=== PATIENT | female | born 1980 | race Caucasian/White ===

== ENCOUNTER 2017-01-17 23:00 | Inpatient (IN) | payer MEDICAID ==
[~2017-01-17] VITALS: Ht 157.5 cm; Wt 74.7 kg
[2017-01-17 23:56] VITALS: Ht 157.5 cm; Wt 74.7 kg
[2017-01-17 23:57] VITALS: BP 124/83; PULSE 89; RESP 18
[2017-01-18] MEDS ORDERED: LACTATED RINGER'S 1,000 ML IV SCH (00:14)
[2017-01-18] MEDS ORDERED: MISOPROSTOL 200 MCG TAB PR PRN ×2 (00:30→06:00)
[2017-01-18] MEDS ORDERED: BUTORPHANOL 2 MG INJ IV PRN ×2 (00:30)
[2017-01-18] MEDS ORDERED: OXYCODONE/ACETAMINOPHEN (5/325) TAB PO PRN (00:30)
[2017-01-18] MEDS ORDERED: OXYTOCIN 30 UNITS/LR 500 ML IV PRN ×2 (00:30→06:00)
[2017-01-18] MEDS ORDERED: IBUPROFEN 600 MG TAB PO PRN (00:30)
[2017-01-18] MEDS ORDERED: AMPICILLIN 2 GM/NS (PMX) 100 ML IV ONE (00:30)
[2017-01-18] MEDS ORDERED: METHYLERGONOVINE 0.2 MG INJ IM PRN ×2 (00:30→06:00)
[2017-01-18] MEDS ORDERED: OXYTOCIN 30 UNITS/LR 500 ML IV SCH ×2 (00:30→02:30)
[2017-01-18] MEDS ORDERED: LIDOCAINE 1% (MPF) 30 ML INJ INJ PRN (00:30)
[2017-01-18] MEDS ORDERED: CARBOPROST 250 MCG INJ IM PRN ×2 (00:30→06:00)
[2017-01-18] MEDS ORDERED: LACTATED RINGER'S 1,000 ML IV PRN (01:00)
[2017-01-18 01:33] LABS: BASOPHILS % 0.2 % (0.0-2.0); EOSINOPHILS # 0.1 10^3/ul (0.0-0.5); EOSINOPHILS % 0.9 % (0.0-7.0); HEMATOCRIT 37.3 % (37.0-47.0); HEMOGLOBIN 12.9 g/dl (12.0-16.0); LYMPHOCYTES # 2.3 10^3/ul (0.8-2.9); MEAN CORPUSCULAR HEMOGLOBIN 30.4 pg (29.0-33.0); MEAN CORPUSCULAR HGB CONC 34.6 g/dl (32.0-37.0); MEAN CORPUSCULAR VOLUME 87.8 fl (82.0-101.0); MEAN PLATELET VOLUME 12.3 fl (7.4-10.4); MONOCYTE # 0.7 10^3/ul (0.3-0.9); MONOCYTES % 7.2 % (0.0-11.0); NEUTROPHILS % 67.8 % (39.0-77.0); PLATELET COUNT 220 10^3/UL (140-415); RED BLOOD COUNT 4.25 10^6/ul (4.20-5.40); WHITE BLOOD COUNT 9.9 10^3/ul (4.8-10.8)
[2017-01-18 01:54] LABS: INR 0.87; PROTIME 11.8 Sec (12.2-14.2); PT RATIO 0.9
--- NOTE | 2017-01-18 03:48 | LDN ---
Date/Time of Note Date/Time of Note DATE: 01/18/17 TIME: 03:47 Delivery Summary Weeks of Gestation 38+ Placenta Delivered: Spontaneously Meconium: none Episiotomy: No Anesthesia type: None Estimated blood loss: 200 Sponge & Needle done & correct: Yes All needle counts correct: Yes Any foreign bodies felt in the: No Problems: Infant Delivery Information Apgars 1 Minute: 9 5 Minute: 9 Suctioning Nose & mouth suctioned at carlo: Yes Delee suction performed: Yes Umbilical Cord Umbilical cord with: 3 Vessels Cord presentations: no nuchal cord Cord Blood was obtained: Yes Mother & Baby Disposition Disposition Mom & Baby to Maternity; Good: Yes Baby to NICU: No ARLETH WILSON M.D. Jan 18, 2017 03:48
--- NOTE | 2017-01-18 03:49 | HP ---
Date/Time of Note Date/Time of Note DATE: 01/18/17 TIME: 03:48 OB - History Hx of Present Free Text/Dictation 38+wks Care: Good Care Obstetrical Complications: None Past Family/Social History * Past Medical, Surgical, Family and Obstetric Histories reviewed from chart. OB Admission Exam Vital Signs Vital Signs Vital Signs Date Time Temp Pulse Resp B/P Pulse Ox O2 Delivery O2 Flow Rate FiO2 01/17/17 23:57 98.9 89 18 124/83 Physical Exam Abdomen: WNL Extremities: Normal Cervical Dilatation: 5cm Effacement: 75% Station: -1 Membranes: Intact Heart Rate: 140's Accelerations: Accelerations Present Decelerations: No Decelerations Varibility: Moderate Contractions on Admission: < 5 Minutes Apart Last 72 hours Lab Results CBC & BMP 01/18/17 01:00 OB Assessment/Plan Reason for admission: observation Plan: Expectant Management ARLETH WILSON M.D. Jan 18, 2017 03:49
[2017-01-18] MEDS: OXYTOCIN 30 UNITS/LR 500 ML IV SCH ×2 (04:01→04:46)
[2017-01-18] MEDS ORDERED: AMPICILLIN 1 GM/NS (PMX) 50 ML IV SCH (04:30)
[2017-01-18] MEDS ORDERED: SENNA/DOCUSATE NA (8.6MG/50MG) TAB PO PRN (06:00)
[2017-01-18] MEDS ORDERED: BENZOCAINE 20% 56 ML SPRAY TOP PRN (06:00)
[2017-01-18] MEDS ORDERED: LANOLIN 7 GM TUBE TOP PRN (06:00)
[2017-01-18] MEDS ORDERED: OXYCODONE/ASPIRIN (4.88/325) TAB PO PRN (06:00)
[2017-01-18] MEDS ORDERED: WITCH HAZEL/GLYCERIN PAD PR PRN (06:00)
[2017-01-18] MEDS ORDERED: ZOLPIDEM 5 MG TAB PO PRN (06:00)
[2017-01-18 06:10] VITALS: BP 105/59; PULSE 69; RESP 18
[2017-01-18 08:00] VITALS: BP 122/75; PULSE 66; RESP 18
[2017-01-18] MEDS: SENNA/DOCUSATE NA (8.6MG/50MG) TAB PO SCH ×2 (09:30→20:55)
[2017-01-18] MEDS: LACTATED RINGER'S 1,000 ML IV* SCH ×2 (09:31→13:54)
[2017-01-18 11:23] VITALS: PULSE 72; RESP 18
[2017-01-18] MEDS: IBUPROFEN 600 MG TAB PO SCH ×3 (12:00→18:00)
[2017-01-18 16:00] VITALS: BP_SYST 110; BP_SYST 122; BP_DIAS 57; BP_DIAS 63; PULSE 100; PULSE 66; RESP 18
[2017-01-18 19:30] VITALS: BP 113/77; PULSE 84; RESP 17
[2017-01-19] VITALS: BP 109/66; RESP 18
[2017-01-19] MEDS: IBUPROFEN 600 MG TAB PO SCH ×5 (00:07→23:50)
[2017-01-19 04:00] VITALS: BP 108/55; PULSE 74; RESP 17
[2017-01-19 07:45] VITALS: BP 104/68; PULSE 79; RESP 18
[2017-01-19] MEDS: SENNA/DOCUSATE NA (8.6MG/50MG) TAB PO SCH ×2 (08:46→21:25)
[2017-01-19 09:19] LABS: BASOPHILS % 0.3 % (0.0-2.0); EOSINOPHILS # 0.1 10^3/ul (0.0-0.5); EOSINOPHILS % 0.7 % (0.0-7.0); HEMATOCRIT 34.8 % (37.0-47.0); HEMOGLOBIN 11.9 g/dl (12.0-16.0); MEAN CORPUSCULAR HEMOGLOBIN 30.2 pg (29.0-33.0); MEAN CORPUSCULAR HGB CONC 34.2 g/dl (32.0-37.0); MEAN CORPUSCULAR VOLUME 88.3 fl (82.0-101.0); MEAN PLATELET VOLUME 11.9 fl (7.4-10.4); MONOCYTE # 0.6 10^3/ul (0.3-0.9); MONOCYTES % 5.5 % (0.0-11.0); NEUTROPHILS % 72.6 % (39.0-77.0); PLATELET COUNT 211 10^3/UL (140-415); RED BLOOD COUNT 3.94 10^6/ul (4.20-5.40); RED CELL DISTRIBUTION WIDTH 13.2 % (11.5-14.5)
[2017-01-19 16:00] VITALS: BP 120/77; PULSE 95; RESP 20
[2017-01-19 19:35] VITALS: BP 102/54; PULSE 88; RESP 18
[2017-01-20 03:40] VITALS: BP 95/58; PULSE 73; RESP 17
[2017-01-20] MEDS: IBUPROFEN 600 MG TAB PO SCH ×2 (05:40→12:41)
[2017-01-20 08:50] VITALS: BP 103/65; PULSE 79; RESP 17
[2017-01-20] MEDS ORDERED: DIPHTH/TET/ACEL PERTUSS (ADULT) 0.5 ML VIAL IM* ONE (09:00)
[2017-01-20] MEDS: SENNA/DOCUSATE NA (8.6MG/50MG) TAB PO SCH (09:54)
[2017-01-20 15:30] VITALS: BP 107/72; PULSE 78; RESP 16
== END 2017-01-20 17:09 | disposition home or self-care (01) | DRG 775 ==
LOC: OBT 23:00 → L-D 23:00 → OBT 01-18 00:10 → PP1 01-18 05:57
PROVIDERS: ADMIT Obstetrics & Gynecology; ATTEND Obstetrics & Gynecology
PROC: 10E0XZZ Delivery of Products of Conception, External Approach (ICD-10-PCS; principal; 2017-01-18)
DX: O80 Encounter for full-term uncomplicated delivery (principal); Z37.0 Single live birth; Z3A.38 38 weeks gestation of pregnancy
CPT/HCPCS: 85025; 85610; 85730; 86592; 86900; 86901; 87340; 90715; G0463; J0290; J2590; J7120